=== PATIENT | male | born 1970 | race Caucasian/White ===

== ENCOUNTER → 2022-09-07 13:48 | Outpatient (CLI) | payer BC, SELFPAY ==
--- NOTE | ~2022-09-07 | XR_ITS ---
EXAMINATION: XR hip LT min 2V INDICATION: Left hip pain TECHNIQUE: Two views of the left hip are obtained COMPARISON: None available FINDINGS: There is moderate osteoarthritis of the hip. Bone alignment is normal. There is no fracture . The soft tissues are unremarkable. IMPRESSION: 1. Moderate osteoarthritis of the hip. Reviewed, dictated and finalized at location B. [facility]
== END ==
PROVIDERS: PCP Family Medicine; Visit Provider Family Medicine
DX: M16.12 Unilateral primary osteoarthritis, left hip (principal); M25.552 Pain in left hip
CPT/HCPCS: 73502